=== PATIENT | female | born 1975 | race Caucasian/White ===

== ENCOUNTER 2021-01-15 17:03 | Outpatient (CLI) | payer OTHER, SELFPAY ==
--- NOTE | ~2021-01-15 | MM_ITS ---
EXAMINATION: MM screening maría BI w briana HISTORY: Screening mammogram TECHNIQUE: Craniocaudal and mediolateral oblique 3-D tomosynthesis images were obtained and synthetic 2-D images were generated. CAD analysis was submitted and interpreted. COMPARISON: No prior mammogram is available for comparison at this institution. BREAST PARENCHYMAL COMPOSITION: There are scattered areas of fibroglandular density. FINDINGS: RIGHT BREAST: There is focal asymmetry in the posterior third of the upper outer quadrant of the [address]. LEFT BREAST: There is a possible mass in the posterior third of the outer breast best appreciated 9 c m from the nipple on craniocaudal tomosynthesis image /70. IMPRESSION: 1. Bilateral breast findings as described above which may represent the patient's baseline however no comparison is currently available. 2. Comparison with prior mammograms is necessary. BI-RADS Category 0: Incomplete: Needs comparison with prior mammograms. Reviewed, dictated and finalized at location A. IMPRESSION: 1. Bilateral breast findings as described above which may represent the patient 's baseline however no comparison is currently available. 2. Comparison with prior mammograms is necessary. BI-RADS Category 0: Incomplete: Needs comparison with prior mammograms.
== END 2021-01-15 17:04 | disposition home or self-care (01) ==
PROVIDERS: Visit Provider Nurse Practitioner Obstetrics & Gynecology
DX: Z12.31 Encounter for screening mammogram for malignant neoplasm of breast (principal); R92.8 Other abnormal and inconclusive findings on diagnostic imaging of breast
CPT/HCPCS: 77063; 77067

== ENCOUNTER 2021-02-16 12:33 | Outpatient (CLI) | payer OTHER, SELFPAY ==
--- NOTE | ~2021-02-16 | MMUS_ITS ---
EXAMINATION: MM diagnostic mammo unilat LT, US breast LT limited HISTORY: Possible mammographic mass in posterior third of outer left breast on 01/15/2021 screening ma mmogram TECHNIQUE: Additional 3-D tomosynthesis images of the left breast were performed and synthetic 2-D im ages were generated. Rotated lateral craniocaudal view of left breast. CAD analysis was submitted and interpreted. High resolution upper outer and lower outer quadrant left breast ultrasound was perform ed. COMPARISON: 01/15/2021 bilateral digital screening mammogram FINDINGS: MAMMOGRAPHIC FINDINGS: No suspicious mass or architectural distortion is evident. ULTRASOUND: Sonographic examination of the upper outer and lower-outer quadrants of the left breast reveal no angela picious mass or architectural distortion. IMPRESSION: 1. No mammographic evidence of malignancy 2. Routine annual mammographic screening is recommended. BI-RADS Category 1: Negative Reviewed, dictated and finalized at location A. IMPRESSION: 1. No mammographic evidence of malignancy 2. Routine annual mammographic screening is recommended. BI-RADS Category 1: Negative
== END 2021-02-16 12:34 | disposition home or self-care (01) ==
LOC: ANHIMG 12:42
DX: R92.8 Other abnormal and inconclusive findings on diagnostic imaging of breast (principal)
CPT/HCPCS: 76642; 77065

== ENCOUNTER → 2021-07-01 18:26 | Outpatient (CLI) | payer OTHER, SELFPAY ==
--- NOTE | ~2021-07-01 | XR_ITS ---
XR finger 2nd LT min 2V DATE: 07/01/2021 18:39 INDICATION: Left second digit pain TECHNIQUE: 4 views COMPARISON: None FINDINGS: No fracture or dislocation, periosteal reaction or bone destruction. No radiopaque soft tis merrill foreign body or subcutaneous emphysema. Joint spaces are preserved. IMPRESSION: Negative Reviewed, dictated and finalized at location A. IMPRESSION: Negative
== END ==
PROVIDERS: PCP Nurse Practitioner; Visit Provider Nurse Practitioner
DX: M79.645 Pain in left finger(s) (principal)
CPT/HCPCS: 73140

== ENCOUNTER 2021-07-04 08:32 | Emergency (ER) | payer OTHER, SELFPAY ==
[2021-07-04 08:40] VITALS: BP 123/82; PULSE 89; RESP 18; TEMP 36.8; O2SAT 100
--- NOTE | 2021-07-04 09:11 | ED.UPPEXIN ---
HPI - Extremity Injury (Upper) General Chief Complaint: Extremity Injury, Upper Stated Complaint: swollen finger Time Seen by Provider: 07/04/21 08:54 Source: patient Mode of arrival: ambulatory Limitations: no limitations History of Present Illness HPI narrative: 45-year-old female Here because of pain and swelling of her left index finger Related Data Home Medications Medication Instructions Recorded Confirmed cetirizine 10 mg tablet 10 mg PO DAILY 03/26/20 06/25/21 multivitamin 1 tablet PO DAILY 03/26/20 06/25/21 sumatriptan succinate 100 mg tablet 100 mg PO ONCE 06/17/21 06/25/21 cetirizine 10 mg capsule 10 mg PO DAILY PRN 06/25/21 06/25/21 Allergies Allergy/AdvReac Type Severity Reaction Status Date / Time No Known Allergies Allergy Verified 07/04/21 08:49 [facility] Past Medical History Medical History (Updated 07/04/21 @ 10:28 by Israel Carey MD) Migraine Surgical History Surgical History [place] teeth extracted Family History Family History Mother CAD (coronary artery disease) Diverticulitis Father Hyperlipidemia LDL goal <100 Grandparent Heart attack Dementia Legal Guardian Diverticulitis Breast cancer Grandparent ESRD (end stage renal disease) Social History Social History Social History: Caffeine 2 Cups coffee and Cola Smoking status: Never smoker Alcohol intake: current Drinks per week: 2 Course Course Emergency Course: Discussed with patient, symptoms have been present for nearly 4 weeks, and did not respond to either antibiotics or systemic anti-inflammatory steroids, imaging showed no foreign body, and with this history and her normal labs and fairly reassuring exam there is really not suspicion that this is acutely infected Discussed with Dr. Tomlin who would like to see Dr. George, and spoke with Dr. George who can get her into the office this week Vital Signs Vital signs: Vital Signs Temperature 36.8 C 07/04/21 08:40 Pulse Rate 89 07/04/21 08:40 Respiratory Rate 18 07/04/21 08:40 Blood Pressure 123/82 07/04/21 08:40 Pulse Oximetry 100 07/04/21 08:40 Temperature 36.8 C 07/04/21 08:40 Pulse Rate 89 07/04/21 08:40 Respiratory Rate 18 07/04/21 08:40 Blood Pressure 123/82 07/04/21 08:40 Pulse Oximetry 100 07/04/21 08:40 MDM - Extremity Injury (Upper) Lab Data Result diagrams: 07/04/21 09:49 Labs: Lab Results 07/04/21 07/04/21 Range/Units 09:49 09:49 WBC 4.9 (4.5-10.0) K/mm3 RBC 4.86 (4.2-5.4) M/mm3 Hgb 15.0 (12.0-15.0) g/dL Hct 43.9 (37.0-47.0) % MCV 90.3 (80-100) fl MCH 30.9 (26-34) pg MCHC 34.2 (32-36) g/dl RDW 11.9 (11.5-14.5) % Plt Count 243 (150-375) k/mm3 MPV 9.8 (7.4-10.4) fl Immature Gran % (Auto) 0.2 (0-0.5) % Neut % (Auto) 51.9 (45.5-73.1) % Lymph % (Auto) 37.3 (18.3-44.2) % Roberts % (Auto) 8.4 (2.6-8.5) % Eos % (Auto) 1.6 (0-4.4) % Baso % (Auto) 0.6 (0.2-1.2) % Lymph # (Auto) 1.83 (0.9-3.2) K/mm3 Roberts # (Auto) 0.4 (0.1-0.6) K/mm3 Eos # (Auto) 0.1 (0-0.3) K/mm3 Baso # (Auto) 0.0 (0.0-0.1) K/mm3 Abs Immat Gran (auto) 0.01 (0.00-0.031) K/mm3 Absolute Neuts (auto) 2.6 (1.3-6.7) K/mm3 Absolute Nucleated RBC 0.0 (0.0-0.012) K/mm3 Nucleated RBC % 0.0 (0.0-0.2) % ESR Pending Uric Acid 4.2 (2.5-7.5) mg/dL C-Reactive Protein < 0.5 (<1.0) mg/dL Discharge Plan Discharge Clinical Impression: Tenosynovitis of finger Patient Disposition: Home, Self-Care Condition: Stable Instructions: Tenosynovitis (ED) Additional Instructions: Contact Dr. George's office early Tuesday morning to arrange follow-up, they are expecting your call [id number] Advil and Benadryl as needed Prescriptions: No Action
[2021-07-04 09:54] LABS: Basophils Percent Auto 0.6 % (0.2-1.2); Eosinophils Absolute Auto 0.1 K/mm3 (0-0.3); Eosinophils Percent Auto 1.6 % (0-4.4); Hematocrit 43.9 % (37.0-47.0); Immature Granulocyte Absolute 0.01 K/mm3 (0.00-0.031); Immature Granulocyte Percent A 0.2 % (0-0.5); Lymphocytes Absolute Auto 1.83 K/mm3 (0.9-3.2); Lymphocytes Percent Auto 37.3 % (18.3-44.2); Mean Corpuscular HGB Conc 34.2 g/dl (32-36); Mean Corpuscular Hemoglobin 30.9 pg (26-34); Mean Corpuscular Volume 90.3 fl (80-100); Mean Platelet Volume 9.8 fl (7.4-10.4); Monocytes Absolute Auto 0.4 K/mm3 (0.1-0.6); Monocytes Percent Auto 8.4 % (2.6-8.5); Neutrophils Absolute Auto 2.6 K/mm3 (1.3-6.7); Neutrophils Percent Auto 51.9 % (45.5-73.1); Platelet Count Result 243 k/mm3 (150-375); Red Blood Count 4.86 M/mm3 (4.2-5.4); Red Cell Distribution Width 11.9 % (11.5-14.5); White Blood Count 4.9 K/mm3 (4.5-10.0)
[2021-07-04 10:08] LABS: CRP < 0.5 mg/dL (<1.0); Uric Acid 4.2 mg/dL (2.5-7.5)
[2021-07-04 11:17] LABS: Erythrocyte Sedimentation Rate 7 mm/hr (0-20)
--- NOTE | 2021-07-29 10:02 | ED.UPPEXIN ---
HPI - Extremity Injury (Upper) General Chief Complaint: Extremity Injury, Upper Stated Complaint: swollen finger Time Seen by Provider: 07/04/21 08:54 History of Present Illness HPI narrative: She has had persistent symptoms for about two weeks beginning after possibly being bit or stung by something while she was doing yard work. No definite site ever noted. Pain/swelling more proximally than distally and a little stiff. Related Data Home Medications Medication Instructions Recorded Confirmed cetirizine 10 mg tablet 10 mg PO DAILY 03/26/20 06/25/21 multivitamin 1 tablet PO DAILY 03/26/20 06/25/21 sumatriptan succinate 100 mg tablet 100 mg PO ONCE 06/17/21 06/25/21 cetirizine 10 mg capsule 10 mg PO DAILY PRN 06/25/21 06/25/21 Allergies Allergy/AdvReac Type Severity Reaction Status Date / Time No Known Allergies Allergy Verified 07/04/21 08:49 Review of Systems Musculoskeletal: Musculoskeletal: Denies myalgias, Reports arthralgias and Reports joint swelling Integumentary/Breasts: Skin/Breast: Denies rash Hematologic/Lymphatic: Hematologic/Lymphatic: Denies easy bleeding and Denies easy bruising Allergic/Immunologic: Allergic/Immunologic: Denies lip swelling, Denies throat swelling, Denies tongue swelling and Denies wheezing PMFSH Past Medical History Medical History (Updated 07/05/21 @ 00:00 by Nelida Dabonnie) Migraine Surgical History Surgical History [place] teeth extracted Family History Family History Mother CAD (coronary artery disease) Diverticulitis Father Hyperlipidemia LDL goal <100 Grandparent Heart attack Dementia Legal Guardian Diverticulitis Breast cancer Grandparent ESRD (end stage renal disease) Social History Social History Social History: Caffeine 2 Cups coffee and Cola Smoking status: Never smoker Alcohol intake: current Drinks per week: 2 Exam Const: General: no acute distress and alert Orientation/consciousness: patient oriented x3 HENMT: Head: normal to inspection Resp: Effort & Inspection: normal respiratory effort and not labored Skin: General skin exam: normal color Rashes: no rashes Course Vital Signs Vital signs: Vital Signs Temperature 36.8 C 07/04/21 08:40 Pulse Rate 89 07/04/21 08:40 Respiratory Rate 18 07/04/21 08:40 Blood Pressure 123/82 07/04/21 08:40 Pulse Oximetry 100 07/04/21 08:40 Temperature 36.8 C 07/04/21 08:40 Pulse Rate 89 07/04/21 08:40 Respiratory Rate 18 07/04/21 08:40 Blood Pressure 123/82 07/04/21 08:40 Pulse Oximetry 100 07/04/21 08:40 MDM - Extremity Injury (Upper) Lab Data Result diagrams: 07/04/21 09:49 Labs: Lab Results 07/04/21 07/04/21 Range/Units 09:49 09:49 WBC 4.9 (4.5-10.0) K/mm3 RBC 4.86 (4.2-5.4) M/mm3 Hgb 15.0 (12.0-15.0) g/dL Hct 43.9 (37.0-47.0) % MCV 90.3 (80-100) fl MCH 30.9 (26-34) pg MCHC 34.2 (32-36) g/dl RDW 11.9 (11.5-14.5) % Plt Count 243 (150-375) k/mm3 MPV 9.8 (7.4-10.4) fl Immature Gran % (Auto) 0.2 (0-0.5) % Neut % (Auto) 51.9 (45.5-73.1) % Lymph % (Auto) 37.3 (18.3-44.2) % Josephine % (Auto) 8.4 (2.6-8.5) % Eos % (Auto) 1.6 (0-4.4) % Baso % (Auto) 0.6 (0.2-1.2) % Lymph # (Auto) 1.83 (0.9-3.2) K/mm3 Josephine # (Auto) 0.4 (0.1-0.6) K/mm3 Eos # (Auto) 0.1 (0-0.3) K/mm3 Baso # (Auto) 0.0 (0.0-0.1) K/mm3 Abs Immat Gran (auto) 0.01 (0.00-0.031) K/mm3 Absolute Neuts (auto) 2.6 (1.3-6.7) K/mm3 Absolute Nucleated RBC 0.0 (0.0-0.012) K/mm3 Nucleated RBC % 0.0 (0.0-0.2) % ESR 7 (0-20) mm/hr Uric Acid 4.2 (2.5-7.5) mg/dL C-Reactive Protein < 0.5 (<1.0) mg/dL Discharge Plan Discharge Clinical Impression: Tenosynovitis of finger Patient Disposition: Ho
== END 2021-07-04 10:39 | disposition home or self-care (01) ==
PROVIDERS: Emergency Provider Emergency Medicine; PCP Family Medicine
DX: M65.9 Synovitis and tenosynovitis, unspecified (principal)
CPT/HCPCS: 36415; 84550; 85025; 85652; 86140; 99283

== ENCOUNTER 2022-04-26 09:50 | Outpatient (CLI) | payer OTHER, SELFPAY ==
--- NOTE | 2022-04-26 10:18 | EST_ITS ---
Patient Info Name: Ginger Jauregui Age: 46 years : 1975 Gender: Female Ht: 67 in Wt: 177 lbs BSA: 1.97 m2 HR: 63 bpm BP: 104 / 62 mmHg Heart Rhythm: Sinus Rhythm Exam Date: 04/26/2022 10:31 AM Exam Location: [facility] Stress Patient Status: Outpatient Admit Date: 04/26/2022 Staff Ordering Physician: Sarah Fernandez NP Attending Provider: Sarah Fernandez NP Exercise Technologist: Agnieszka Sanchez CT Exercise Physician: Jhon Stein DO Exam Type: CA stress test treadmill Study Info Indications R07.89 - Other chest pain A treadmill exercise stress test was performed. Summary 1. 1. Negative Star exercise stress test for ischemic ST changes by ECG criteria. 2. 2. Good functional capacity, achieving 12 METs of workload. 3. 3. Appropriate HR response to exercise. 4. 4. Appropriate HR recovery at 1 minute post exercise. 5. 5. No imaging with stress testing. Protocol: Star Stress ECG Details Stage: REST Duration (min): 1 min : 14 sec Speed (mph): 0.0 Grade (%): 0 HR (bpm): 64 SBP (mmHg): 104 DBP (mmHg): 62 METS: --- Stage: REST Duration (min): 10 min : 13 sec Speed (mph): 0.0 Grade (%): 0 HR (bpm): 74 SBP (mmHg): 104 DBP (mmHg): 62 METS: --- Stage: STAGE 1 Duration (min): 1 min : 0 sec Speed (mph): 1.7 Grade (%): 10 HR (bpm): 98 SBP (mmHg): 104 DBP (mmHg): 62 METS: --- Stage: STAGE 1 Duration (min): 2 min : 0 sec Speed (mph): 1.7 Grade (%): 10 HR (bpm): 107 SBP (mmHg): 104 DBP (mmHg): 62 METS: --- Stage: STAGE 1 Duration (min): 3 min : 0 sec Speed (mph): 1.7 Grade (%): 10 HR (bpm): 106 SBP (mmHg): 140 DBP (mmHg): 69 METS: --- Stage: STAGE 2 Duration (min): 1 min : 0 sec Speed (mph): 2.5 Grade (%): 12 HR (bpm): 110 SBP (mmHg): 140 DBP (mmHg): 69 METS: --- Stage: STAGE 2 Duration (min): 2 min : 0 sec Speed (mph): 2.5 Grade (%): 12 HR (bpm): 118 SBP (mmHg): 157 DBP (mmHg): 69 METS: --- Stage: STAGE 2 Duration (min): 3 min : 0 sec Speed (mph): 2.5 Grade (%): 12 HR (bpm): 119 SBP (mmHg): 157 DBP (mmHg): 69 METS: --- Stage: STAGE 3 Duration (min): 1 min : 0 sec Speed (mph): 3.4 Grade (%): 14 HR (bpm): 133 SBP (mmHg): 138 DBP (mmHg): 74 METS: --- Stage: STAGE 3 Duration (min): 2 min : 0 sec Speed (mph): 3.4 Grade (%): 14 HR (bpm): 133 SBP (mmHg): 138 DBP (mmHg): 74 METS: --- Stage: STAGE 3 Duration (min): 3 min : 0 sec Speed (mph): 3.4 Grade (%): 14 HR (bpm): 141 SBP (mmHg): 138 DBP (mmHg): 74 METS: --- Stage: STAGE 4 Duration (min): 1 min : 0 sec Speed (mph): 4.2 Grade (%): 16 HR (bpm): 154 SBP (mmHg): 138 DBP (mmHg): 74 METS: --- Stage: STAGE 4 Duration (min): 1 min : 0
== END 2022-04-26 09:51 | disposition home or self-care (01) ==
PROVIDERS: PCP Family Medicine; Visit Provider Nurse Practitioner
DX: I49.9 Cardiac arrhythmia, unspecified (principal); R07.89 Other chest pain
CPT/HCPCS: 93017

== ENCOUNTER 2022-08-09 15:29 | Outpatient (CLI) | payer OTHER, SELFPAY ==
--- NOTE | ~2022-08-09 | MM_ITS ---
EXAMINATION: MM screening maría BI w briana HISTORY: Screening TECHNIQUE: Craniocaudal and mediolateral oblique 3-D tomosynthesis images were obtained and synthetic 2-D images were generated. CAD analysis was submitted and interpreted. COMPARISON: Comparison to multiple prior studies sequentially, with oldest reviewed study dated Francisco J rison to multiple prior studies sequentially, with oldest reviewed study dated 02/23/2019. . BREAST PARENCHYMAL COMPOSITION: There are scattered areas of fibroglandular density. FINDINGS: There are periareolar asymmetries in the right breast, not definitely seen on prior study. The left breast is stable without evidence for malignancy. IMPRESSION: 1. Periareolar asymmetries of the right breast. 2. Additional mammographic views and possible breast ultrasound are recommended. BI-RADS Category 0: Incomplete: Needs additional imaging evaluation. Reviewed, dictated and finalized at location A. BUYER IMPRESSION: 1. Periareolar asymmetries of the right breast. 2. Additional mammographic views and possible breast ultrasound are recommended . BI-RADS Category 0: Incomplete: Needs additional imaging evaluation.
== END 2022-08-09 15:30 | disposition home or self-care (01) ==
LOC: ANHIMG 15:31
PROVIDERS: PCP Family Medicine; Visit Provider Nurse Practitioner Obstetrics & Gynecology
DX: Z12.31 Encounter for screening mammogram for malignant neoplasm of breast (principal); R92.8 Other abnormal and inconclusive findings on diagnostic imaging of breast
CPT/HCPCS: 77063; 77067

== ENCOUNTER 2022-10-01 14:02 | Outpatient (CLI) | payer OTHER, SELFPAY ==
--- NOTE | ~2022-10-01 | MM_ITS ---
EXAMINATION: MM diagnostic maría RT w briana HISTORY: Focal asymmetry right breast on screening mammogram TECHNIQUE: Additional 3-D tomosynthesis images of the right breast were performed and synthetic 2-D i mages were generated. CAD analysis was submitted and interpreted. COMPARISON: 08/09/2022, 01/15/2021, 02/23/2019 BREAST PARENCHYMAL COMPOSITION: There are scattered areas of fibroglandular density. FINDINGS: There is a return to baseline fibroglandular appearance with spot compression of the subare olar right breast in the area questioned on screening mammogram. IMPRESSION: 1. No mammographic evidence of malignancy. 2. Recommend routine screening mammography in one year. BI-RADS Category 1: Negative Reviewed, dictated and finalized at location A. IAL DIET COOK
== END 2022-10-01 14:03 | disposition home or self-care (01) ==
LOC: ANHIMG 14:05
PROVIDERS: PCP Family Medicine; Visit Provider Nurse Practitioner Obstetrics & Gynecology
DX: R92.8 Other abnormal and inconclusive findings on diagnostic imaging of breast (principal)
CPT/HCPCS: 77061; 77065; G0279

== ENCOUNTER 2024-02-01 07:42 | Outpatient (CLI) | payer OTHER, SELFPAY ==
--- NOTE | ~2024-02-01 | MM_ITS ---
EXAMINATION: MM screening maría BI w briana HISTORY: Screening mammogram TECHNIQUE: Craniocaudal and mediolateral oblique 3-D tomosynthesis images were obtained and synthetic 2-D images were generated. CAD analysis was submitted and interpreted. COMPARISON: 10/01 diagnostic right mammogram 08/09/2022 bilateral screening mammogram 02/16/2021 diagnostic left mammogram and Limited left breast ultrasound examination 01/15/2021 bilateral screening mammogram BREAST PARENCHYMAL COMPOSITION: There are scattered areas of fibroglandular density. FINDINGS: Stable fibroglandular asymmetry. There is no evidence of suspicious mass, calcification, or architectural distortion to suggest malignancy in either breast. There has been no suspicious interv al change. IMPRESSION: 1. No mammographic evidence of malignancy. 2. Recommend routine screening mammography in one year. BI-RADS Category 1: Negative Reviewed, dictated and finalized at location A.
== END 2024-02-01 07:43 | disposition home or self-care (01) ==
PROVIDERS: PCP Nurse Practitioner Family
DX: Z12.31 Encounter for screening mammogram for malignant neoplasm of breast (principal)
CPT/HCPCS: 77063; 77067

== ENCOUNTER 2025-03-20 15:30 | Outpatient (CLI) | payer OTHER, SELFPAY ==
--- NOTE | ~2025-03-20 | MM_ITS ---
EXAMINATION: MM screening [facility] BI w briana HISTORY: Screening mammogram TECHNIQUE: Craniocaudal and mediolateral oblique 3-D tomosynthesis images were obtained and synthetic 2-D images were generated. CAD analysis was submitted and interpreted. COMPARISON: 02/01/2024, 10/01/2022, 08/09/2022, 01/15/2021 BREAST PARENCHYMAL COMPOSITION:Not Dense. There are scattered areas of fibroglandular density. FINDINGS: No suspicious mass, calcification, or architectural distortion are identified in either beatrice ast to suggest malignancy. There has been no suspicious interval change. IMPRESSION: No mammographic evidence of malignancy. Recommend routine screening mammography in one year. BI-RADS Category 1: Negative Reviewed, dictated and finalized at location .
== END 2025-03-20 15:31 | disposition home or self-care (01) ==
LOC: ANHIMG 15:42
PROVIDERS: PCP Nurse Practitioner Family; Visit Provider Advanced Practice Midwife
DX: Z12.31 Encounter for screening mammogram for malignant neoplasm of breast (principal)
CPT/HCPCS: 77063; 77067